=== PATIENT | male | born 1960 | race Caucasian/White ===

== ENCOUNTER 2016-09-14 11:20 | Day surgery (SDC) | payer MEDICARE, OTHER ==
[~2016-09-14 11:20] MED LIST: RINGERS SOLUTION,LACTATED 1,000 ML IV PRN
--- OUTSIDE RECORDS SUMMARY | 2016-09-14 11:24 | XMS REPORT | Continuity of Care Document ---
:1960 Author Organization [facility] ([facility]) Address [address] [place] [address] Phone [phone] Care Team Providers Name Role Phone Provider, No-Primary Care Primary Care Provider Unavailable Source Comments This disclosure is being made pursuant to the Care Everywhere program, applicable federal and state laws, and may not contain all informaitonavailable regarding this patient.[facility] ([facility]) Active Allergies and Adverse Reactions No Known Allergies Current Medications Prescription Sig. Disp. Refills Start Date End Date Status LISINOPRIL 10 mg 10 mg. 08/20/2014 Active tablet METFORMIN 500 mg 500 mg. 08/31/2014 Active tablet THIORIDAZINE 10 mg 10 mg. 07/30/2014 Active tablet CLONAZEPAM 0.5 mg 0.5 mg. 08/23/2014 Active tablet loratadine 10 mg Take 10 mg by mouth Active tablet daily. aspirin PO Take by mouth. Active HYDROcodone-acetamino Take 1 Tab by mouth 20 Tab 0 10/01/2014 Active phen 5-325 mg per every 4 hours as tablet needed for Pain. DO NOT EXCEED 3,000 MG ACETAMINOPHEN PER DAY FROM ALL SOURCES Indications: PAIN ibuprofen 800 mg Take 1 Tab by mouth 20 Tab 0 10/01/2014 Active tablet every 6 hours as needed for Pain. DO NOT EXCEED 3,200 MG IBUPROFEN PER DAY FROM ALL SOURCES Indications: PAIN Active Problems Not on file Social History Tobacco Use Types Packs/Day Years Used Date Never Smoker Smokeless Tobacco: Never Used Alcohol Use Drinks/Week oz/Week Comments No Last Filed Vital Signs Vital Sign Reading Time Taken Blood Pressure 142/80 10/01/2014 12:17 PM CDT Pulse 73 10/01/2014 10:53 AM CDT Temperature 37 C (98.6 F) 10/01/2014 10:53 AM CDT Respiratory Rate - - Height 1.676 m (5' 5.98") 10/01/2014 10:53 AM CDT Weight 99.791 kg (220 lb) 10/01/2014 10:53 AM CDT Body Mass Index 35.53 10/01/2014 10:53 AM CDT Oxygen Saturation 100% 10/01/2014 12:17 PM CDT Plan of Care Health Maintenance Due Date Last Done Comments HCV Screening 1960 Hepatitis B Vaccine (1 of 3 - Primary Series) 1960 Tdap Vaccine 01/06/1971 Lipid Disorder Screening 01/06/1978 MMR Vaccine 01/06/1978 Td Vaccine 01/06/1978 Colonoscopy 01/06/2010 Prostate Cancer Screening 01/06/2010 Influenza Vaccine: Seasonal (#1) 01/13/2016 Results from Last 3 Months Not on file
[2016-09-14] MEDS ORDERED: RINGERS SOLUTION,LACTATED 1,000 ML IV ONE ×2 (12:33→13:48)
[2016-09-14] MEDS ORDERED: RINGERS SOLUTION,LACTATED 1,000 ML IV PRN (13:56)
[2016-09-14 14:54] VITALS: BP 163/83
[2016-09-14] MEDS ORDERED: LORATADINE 10 MG PO SCH (15:00)
[2016-09-14] MEDS ORDERED: ASPIRIN 325 MG PO SCH (15:00)
[2016-09-14] MEDS ORDERED: NON-FORMULARY 1 DOSE DOSE (Blood-Glucose Meter [Blood Glucose Monitoring] 1 EACH) MC SCH (15:00)
[2016-09-14] MEDS ORDERED: LISINOPRIL 10 MG PO SCH (15:00)
[2016-09-14] MEDS ORDERED: METFORMIN HCL 500 MG PO SCH (17:00)
--- NOTE | 2016-09-14 18:35 | OR ---
Operative Report - Dictated Report Narrative: OPERATIVE REPORT DATE OF OPERATION: 09/14/2016 PREOPERATIVE DIAGNOSIS: No prior dedicated colon studies POSTOPERATIVE DIAGNOSIS: Normal colonoscopy OPERATION: Colonoscopy SURGEON: Hernan Franklin MD ANESTHESIA: MAME Faulkner CRNA INDICATIONS FOR PROCEDURE: The patient is a 56-year-old male referred for an initial colon screening by Dr. Liao. The patient is then no previous dedicated colon studies. There is no family history of colon cancer. The patient has a tendency to constipation. FINDINGS: Capacious: Otherwise normal exam to the cecum NARRATIVE OF PROCEDURE: The patient was identified in the holding area, and prior to the administration of anesthetic, a multidisciplinary timeout was observed. With the patient in the left lateral position and after the administration of intravenous sedation, the perineum was inspected. There was no evidence of pilonidal disease or skin breakdown. The external appearance of the anus was normal. Sphincter tone was good. The flexible fiberoptic colonoscope was inserted into the rectum which was insufflated with air. The rectal mucosa and submucosal vascular pattern appeared normal, the prep was seen to be complete. The scope was advanced through the sigmoid colon, up the descending colon, and around the splenic flexure where the triangular haustral architecture of the transverse colon was seen. The scope was advanced across the transverse colon, around the hepatic flexure to the cecum, where the confluence of tenia and the ileocecal valve were identified. The mucosa at this level appeared normal. The scope was then slowly withdrawn in a circular fashion so that all aspects of colonic mucosa were inspected. The colon was capacious in character and slightly redundant course. The haustral architecture appeared well preserved throughout with no evidence of external compression. The mucosa and submucosal vascular pattern appeared normal, specifically there was no gross evidence to suggest colitis or inflammatory bowel disease and no AV malformations were seen. No diverticulosis was demonstrated. No polyps were encountered. The scope was gradually withdrawn to the level of the rectum. As much insufflated air as possible was removed. The scope was withdrawn from the patient and the procedure terminated. The patient tolerated the anesthetic and procedure well without complication and was transferred back to the ambulatory surgery area awake and in stable condition. The patient remained stable throughout a period of postoperative observation. He denied abdominal discomfort, was able to tolerate by mouth intake, and was up without assistance. I shared the operative findings with the patient and his family and he was given copies of the photographs which appear in the medical record. He was discharged home with instructions not to engage in hazardous activity today, but may resume normal activity tomorrow, and advance diet as tolerated. He is to continue those medications as listed in the history and physical exam. RECOMMENDATION: Colon surveillance in 10 years depending upon findings and symptoms Reviewed and electronically signed
[2016-09-14] MEDS ORDERED: CLONAZEPAM 0.5 MG PO SCH (21:00)
== END 2016-09-14 11:21 | disposition home or self-care (01) ==
LOC: AMB 11:20
PROVIDERS: ATTEND Surgery
PROC: 0DJD8ZZ Inspection of Lower Intestinal Tract, Via Natural or Artificial Opening Endoscopic (ICD-10-PCS; principal; 2016-09-14 13:00)
DX: Z12.11 Encounter for screening for malignant neoplasm of colon (principal); E11.9 Type 2 diabetes mellitus without complications; I10 Essential (primary) hypertension; E78.5 Hyperlipidemia, unspecified; E66.9 Obesity, unspecified; Z68.34 Body mass index [BMI] 34.0-34.9, adult